=== PATIENT | male | born 1985 | race Caucasian/White ===

== ENCOUNTER 2023-08-04 20:59 | Emergency (ER) | payer MEDICAID, SELFPAY ==
[2023-08-04 21:05] VITALS: BP 145/94; PULSE 90; TEMP 36.7; O2SAT 96; BMI 38.0
[2023-08-04 21:09] VITALS: PULSE 93
--- NOTE | 2023-08-04 21:09 | ECG_ITS ---
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
[2023-08-04 21:10] VITALS: O2SAT 95
--- NOTE | 2023-08-04 21:19 | ED_ITS ---
HPI - SOB/Dyspnea General Chief Complaint: Shortness of Breath/Dyspnea Stated Complaint: diff breathing Time Seen by Provider: 08/04/23 21:18 Source: patient Mode of arrival: walk-in Limitations: no limitations History of Present Illness HPI Narrative: presents complaining of shortness of breath and cough for past 3 days. Dry cough. Chest pain with cough. No nausea or abdominal pain. Does smoke cigarettes but states he is smoking less. No fever. MD elicited complaint: shortness of breath and cough Related Data Home Medications ?Medication ?Instructions ?Recorded ?Confirmed aripiprazole 2 mg tablet (Abilify) 2 mg PO DAILY 08/04/23 08/04/23 buspirone 7.5 mg tablet 7.5 mg PO TID 08/04/23 08/04/23 sertraline 25 mg tablet (Zoloft) 25 mg PO DAILY 08/04/23 08/04/23 trazodone 100 mg tablet 150 mg PO DAILY 08/04/23 08/04/23 Allergies Allergy/AdvReac Type Severity Reaction Status Date / Time No Known Drug Allergies Allergy Verified 08/04/23 21:09 Review of Systems ROS Status of ROS 10 or more systems reviewed and unremark able except as noted in history and below Exam Constitutional Vital Signs, click to edit/add: Last Vital Signs Temp 98.1 F 08/04/23 21:05 Pulse 95 H 08/04/23 22:48 Resp 18 08/04/23 23:35 BP 134/67 08/04/23 22:48 Pulse Ox 95 08/04/23 22:48 O2 Del Method Room Air 08/04/23 23:35 Common normals: no apparent distress, average body habitus, oriented x3, no limitations, healthy appearing, alert and well nourished Eye Common normals: EOMs intact bilaterally and conjunctivae normal Respiratory Common normals: normal respiratory effort, no retractions, no use of accessory muscles and clear to auscultation bilaterally Cardio Common normals: regular rate, regular rhythm, S1 normal heart sound and S2 normal heart sound GI Common normals: Normal to inspection, nondistended, normoactive bowel sounds present, soft to palpation and non-tender Extremity Common normals: normal to inspection and full ROM Neuro Common normals: oriented x3, moves all extremities and no focal motor deficits Psych Appearance: grossly normal Course Vital Signs Vital signs: Vital Signs Temperature 98.1 F 08/04/23 21:05 Pulse Rate 90 08/04/23 21:05 Respiratory Rate 16 08/04/23 21:05 Blood Pressure 145/94 H 08/04/23 21:05 Pulse Oximetry 96 08/04/23 21:05 Oxygen Delivery Method Room Air 08/04/23 21:05 Temperature 98.1 F 08/04/23 21:05 Pulse Rate 95 H 08/04/23 22:48 Respiratory Rate 18 08/04/23 23:35 Blood Pressure 134/67 08/04/23 22:48 Pulse Oximetry 95 08/04/23 22:48 Oxygen Delivery Method Room Air 08/04/23 23:35 MDM - SOB/Dyspnea MDM Narrative Medical decision making narrative: patient ill for a couple of days. daily cigarette smoker. States he feels short of breath but in no distress. RA pulse ox 95%. RR 16 CTA chest with mild airway inflammation and swab positive for influenza. Patient advised of the diagnosis. Given first does of Tamiflu and discharged home with prednisone and an inhaler Lab Data Labs: Lab Results 08/04/23 08/04/23 Range/Units 21:29 21:30 WBC 4.1 (4.0-11.0) 10^3/uL RBC 4.88 (4.70-6.10) 10^6/uL Hgb 13.8 L (14.0-18.0) g/dL Hct 42.6 (42.0-54.0) % MCV 87.3 (80.0-94.0) fL MCH 28.3 (25.9-34.0) pg MCHC 32.4 (29.9-35.2) g/dL RDW 12.6 (11.0-15.0) % Plt Count 198 (150-450) 10^3/uL MPV 10.4 (9.5-13.5) fL Neut % (Auto) 55.7 (43.0-75.0) % Lymph % (Auto) 30.5 (20.5-60.0) % [place] % (Auto) 11.9 (1.7-12.0) % Eos % (Auto) 1.5 (0.9-7.0) % Baso % (Auto) 0.2 (0.2-2.0) % Neut # (Auto) 2.3 (1.4-6.5) 10^3/uL Lymph # (Auto) 1.3 (1.2-3.8) 10^3/uL [place] # (Auto) 0.5 (0.3-0.8) 10^3/uL Eos # (Auto) 0.1 (0.0-0.7) 10^3/uL Baso # (Auto) 0.0 (0.0-0.1) 10^3/uL Abs Immat Gran (auto) 0.01 (0.00-0.03) 10^3/uL Imm/Tot Granulo (auto) 0.2 (0.0-0.5) % D-Dimer 0.82 H* (<=0.59) mg/L FEU Sodium 138 (136-145) mmol/L Potassium 3.9 (3.5-5.1) mmol/L Chloride 104 (98-107) mmol/L Carbon Dioxide 23.0 (21.0-32.0) mmol/L Anion Gap 14.9 BUN 16.0 (7.0-18.0) mg/dL Creatinine 1.03 (0.70-1.30) mg/dL Est GFR ( Amer) >60 (>=60) Est GFR (Non-Af Amer) >60 (>=60) BUN/Creatinine Ratio 15.5 Glucose 121 H (74-106) mg/dL Calcium 8.4 L (8.5-10.1) mg/dL Troponin I High Sens 9.3 (4.0-76.1) pg/mL NT-Pro-B Natriuret Pep <5.0 (<=450.0) pg/mL Influenza Type A Ag Negative Influenza Type B Ag Positive A SARS-CoV-2 Ag (CV2AG) Negative (NEGATIVE) Imaging Data Chest x-ray: Radiologist's impression: ITS Impressions Chest X-Ray 08/04/23 21:21 IMPRESSION: 1. No acute cardiopulmonary abnormality. Electronically authenticated by: Jonelle MARTINEZ Date: 08/04/2023 22:01 Chest CTA 08/04/23 22:04 IMPRESSION: 1. No evidence of central pulmonary embolism. 2. Mild bronchial wall thickening could reflect airway inflammation. There is no mucous plug or significant pulmonary consolidation. 3. Cholelithiasis. Electronically authenticated by: JUVENAL DIOP Date: 08/05/2023 02:27 Discharge Plan Discharge Stand Alone Forms: Portal Instructions Chief Complaint: Shortness of Breath/Dyspnea Clinical Impression: Influenza Patient Disposition: Home, Self-Care Time of Disposition Decision: 23:20 Condition: Good Prescriptions / Home Meds: No Action buspirone 7.5 mg tablet 7.5 mg PO TID aripiprazole [Abilify] 2 mg tablet 2 mg PO DAILY trazodone 100 mg tablet 150 mg PO DAILY sertraline [Zoloft] 25 mg tablet 25 mg PO DAILY Print Language: Macedonian Instructions: Influenza (ED) Additional Instructions: follow up with your doctor early next week for recheck. Return if you become more short of breath Referrals: Physician,Non-Staff, MD [Primary Care Provider] - 1 week Discharge Date/Time: 08/04/23 23:39
--- NOTE | 2023-08-04 21:21 | XR_ITS ---
The [address] [address] Patient Name: YOVANA FONG MRN: [id number] date: 1985 Sex: M Assigned Patient Location: ER Current Patient Location: ED.MAIN Accession/Order Number: [id number] Exam Date: 08/04/2023 21:26 Report Date: 08/04/2023 22:01 At the request of: DARRYL REDDING Procedure: XR chest 1V EXAM: XR chest 1V HISTORY: short of breath COMPARISON: Chest radiographs dated 09/16/2020. TECHNIQUE: One view of the chest was obtained. FINDINGS: The cardiac silhouette is stable in size. The lungs are clear. There is no significant pneumothorax or pleural effusion. No acute osseous abnormality is seen. XR/XR chest 1V IMPRESSION: 1. No acute cardiopulmonary abnormality. Electronically authenticated by: Jonelle MARTINEZ Date: 08/04/2023 22:01
[2023-08-04 21:39] LABS: Basophils Percent Auto 0.2 % (0.2-2.0); Eosinophils Absolute Auto 0.1 10^3/uL (0.0-0.7); Eosinophils Percent Auto 1.5 % (0.9-7.0); Hematocrit 42.6 % (42.0-54.0); Hemoglobin 13.8 g/dL (14.0-18.0); Immature Granulocytes Abs Auto 0.01 10^3/uL (0.00-0.03); Immature Granulocytes Pct Auto 0.2 % (0.0-0.5); Lymphocytes Absolute Auto 1.3 10^3/uL (1.2-3.8); Lymphocytes Percent Auto 30.5 % (20.5-60.0); Mean Corpuscular HGB Conc 32.4 g/dL (29.9-35.2); Mean Corpuscular Hemoglobin 28.3 pg (25.9-34.0); Mean Corpuscular Volume 87.3 fL (80.0-94.0); Mean Platelet Volume 10.4 fL (9.5-13.5); Monocytes Absolute Auto 0.5 10^3/uL (0.3-0.8); Monocytes Percent Auto 11.9 % (1.7-12.0); Neutrophils Absolute Auto 2.3 10^3/uL (1.4-6.5); Neutrophils Percent Auto 55.7 % (43.0-75.0); Platelet Count 198 10^3/uL (150-450); Red Blood Count 4.88 10^6/uL (4.70-6.10); Red Cell Distribution Width 12.6 % (11.0-15.0); White Blood Count 4.1 10^3/uL (4.0-11.0)
[2023-08-04 21:49] LABS: Influenza Virus A Antigen Negative; Influenza Virus B Antigen Positive; Internal Control Within Normal Limits; SARS-CoV-2 Ag NEGATIVE (NEGATIVE)
[2023-08-04 21:54] VITALS: PULSE 89; O2SAT 96
[2023-08-04] MEDS: IPRATROPIUM/ALBUTEROL SULFATE 3 ML AMPUL.NEB IH (21:54)
[2023-08-04] MEDS: METHYLPREDNISOLONE SOD SUCC PF 125 MG/2 ML VIAL IVP (21:58)
[2023-08-04 21:59] LABS: Anion Gap 14.9; BUN Creatinine Ratio 15.5; Calcium 8.4 mg/dL (8.5-10.1); Chloride 104 mmol/L (98-107); Estimated GFR (African America >60 (>=60); Estimated GFR (Non-African Ame >60 (>=60); Glucose 121 mg/dL (74-106); NT Pro B Type Natriuretic Pept <5.0 pg/mL (<=450.0); Potassium 3.9 mmol/L (3.5-5.1); Sodium 138 mmol/L (136-145); Troponin I High Sensitivity 9.3 pg/mL (4.0-76.1)
[2023-08-04 22:04] LABS: D Dimer 0.82 mg/L FEU (<=0.59)
--- NOTE | 2023-08-04 22:04 | CT_ITS ---
[address] [address] Patient Name: YOVANA FONG MRN: [id number] date: 1985 Sex: M Assigned Patient Location: ER Current Patient Location: Accession/Order Number: [id number] Exam Date: 08/04/2023 22:21 Report Date: 08/05/2023 02:27 At the request of: DARRYL REDDING Procedure: CT angio chest EXAM: CT ANGIO CHEST HISTORY: Short of breath. COMPARISON: None. TECHNIQUE: CTA chest with IV contrast. FINDINGS: There is suboptimal opacification of the pulmonary arteries. No large central filling defects to the lobar level. Aorta is normal. No axillary or mediastinal pathological lymphadenopathy. There are subcentimeter lymph nodes in the right paratracheal region with a short axis measurement of 9 to 10 mm and in the lateral aortic recess measuring up to 8 to 9 mm. Normal heart size. No bowel obstruction or inflammation. No pneumatosis or pneumoperitoneum. Mild bronchial wall thickening. Airways are patent. No acute findings in the upper abdomen to the extent of limited visualization. Adrenal glands are partially imaged. Gallstones noted. No acute bony abnormality. CT/CT angio chest IMPRESSION: 1. No evidence of central pulmonary embolism. 2. Mild bronchial wall thickening could reflect airway inflammation. There is no mucous plug or significant pulmonary consolidation. 3. Cholelithiasis. Electronically authenticated by: JUVENAL DIOP Date: 08/05/2023 02:27
[2023-08-04 22:48] VITALS: BP 134/67; PULSE 95; O2SAT 95
[2023-08-04] MEDS: OSELTAMIVIR PHOSPHATE 75 MG CAPSULE PO (23:31)
[2023-08-04] MEDS: ALBUTEROL SULFATE 200 PUFF/6.7 GM INHALER IH (23:31)
== END 2023-08-04 23:39 | disposition home or self-care (01) ==
PROVIDERS: Emergency Provider Internal Medicine
DX: J10.1 Influenza due to other identified influenza virus with other respiratory manifestations (principal); Z20.822 Contact with and (suspected) exposure to COVID-19; F17.210 Nicotine dependence, cigarettes, uncomplicated; Z79.899 Other long term (current) drug therapy
CPT/HCPCS: 36415; 71045; 71275; 80048; 83880; 84484; 85025; 85378; 87804; 87811; 93005; 94640; 96374; 99285; J2919; Q9967

== ENCOUNTER 2023-11-12 09:15 | Observation (INO) | payer MEDICAID, SELFPAY ==
[2023-11-12] VITALS (11 sets, daily range): BP systolic 114–150; BP diastolic 82–129; PULSE 78–106; TEMP 36.5–36.6; O2SAT 91–99; BMI 35.3; BMI 37.6
--- NOTE | 2023-11-12 | CONS_ITS ---
CONSULTATION CONSULTATION DATE: ??11/12/2023 CHIEF COMPLAINT:? Abdominal pain. HISTORY OF PRESENT ILLNESS: Patient is a 41-year-old male with history of generalized anxiety disorder, as well as history of opioid abuse in the past, who presented to the emergency room with acute onset of epigastric pain that began at approximately 5:30 this morning.? It woke him up from sleep.? He described the pain as sharp, stabbing, burning at times.? It was associated with several episodes of watery loose stools, as well as some nausea and bilious emesis x2 or 3.? Because of the persistence of the pain, presented to the emergency room for evaluation.? He denies any history of similar type pain.? He had not had anything to eat today.? He reports he did have pizza have dinner last evening, has never had any fatty food intolerances or problems other than occasional GERD after eating spicy foods.? He denies any fever, chills or night sweats.? He has had no ill contacts.? No medication changes or ljpk-[id number] medication use.? Has had no previous surgical operations or endoscopies.? Workup in the emergency room revealed normal laboratory evaluation, with a very slight elevation of his white blood cell count 11.5.? He had normal liver function tests, amylase and lipase.? He did undergo a CT scan of the abdomen and pelvis which revealed a stone within the lower portion of the gallbladder that was non- obstructing.? There was no distention of the gallbladder.? No wall thickening.? No edema or pericholecystic fluid.? No other inflammatory changes noted within the abdomen or free fluid or air.? Because of the persistent pain which the patient was describing as severe, the emergency room felt he could not be discharged to home, even though there was not a clear explanation for his pain.? He was admitted for observation.? He is not taking any narcotics due to his previous history of abuse.? He has been taking Toradol.? Patient denies any history of ulcer disease.? Has had no melena.? No rectal bleeding.? He reportedly has a history of colon polyps as a small child that was evaluated after rectal bleeding.? He reports he has not had any problems since that time.? ALLERGIES:? Patient has no known drug allergies.? MEDICATION:? Only medication he is currently taking is Ability.? He was on buspirone, Zoloft and trazodone, which he has not been taking for the last four months.? PAST SURGICAL HISTORY:? He denies any previous surgical operations. SOCIAL HISTORY:? He does vape nicotine products daily.? Denies alcohol use or illicit drug use.? FAMILY HISTORY:? Noncontributory. REVIEW OF SYSTEMS:? Ten system review of systems is negative for recent weight loss or weight gain.? He denies increased fatigue or light-headedness.? Has had no earache or tinnitus.? No sinus congestion.? No sore throat or hoarseness.? No chest pain, palpitations or syncope.? No chronic cough, shortness of breath or hemoptysis.? He has had the abdominal pain.? Limited nausea, vomiting and diarrhea.? No dysuria, frequency, urgency or hematuria.? No headaches, seizures or tremors.? No easy bruising or bleeding.? No heat or cold intolerance.? No polydipsia, polyphagia or polyuria. PHYSICAL EXAM:? VITAL SIGNS:? He has had a slight tachycardia of 100.? Blood pressure is normal at 114/82.? Respiratory rate is 18.? He is afebrile.? O2 saturation is 94% on room air.? GENERAL:? In general, he is a well developed, well nourished male, currently resting in bed, in no acute distress. HEENT:? Normocephalic, atraumatic.? Sclerae anicteric.? Conjunctiva are not injected.? Oral mucosa is moist without lesions. NECK:? Supple.? There is no adenopathy, thyromegaly or JVD. LUNGS:? Clear bilaterally.? CARDIAC EXAM:? Increased rate without appreciable murmurs, rubs or gallops. ABDOMEN:? Soft.? There are slightly hyperactive bowel sounds.? There is very mild epigastric tenderness.? No Del Castillo?s sign.? No tenderness over the right upper quadrant.? No peritoneal signs.? No masses, hepatosplenomegaly or hernias appreciated.? No CVA tenderness.? SKIN: ?Warm and dry without lesions, rashes or ulcers. NEURO EXAM:? Non-focal.? Non-lateralizing.? Patient is awake, alert, oriented with appropriate affect. MUSCULOSKELETAL:? There is normal muscle strength, mass and tone. ASSESSMENT:? A 41-year-old male with a 12 hour history of epigastric pain, unclear etiology.? He did also undergo a right upper quadrant ultrasound which revealed the stone in the lower portion of the gallbladder.? No gallbladder wall thickening.? No distention.? No inflammatory changes or pericholecystic fluid.? There was a slight prominence of the common duct at 6-7 cm.? Overall, this may represent a gastroenteritis, gastritis, less likely a biliary colic episode.? There is no evidence of acute cholecystitis currently.? Certainly, he may be passing a small stone in the common duct, which would be difficult to identify, even with MRCP.? PLAN:? I agree with bowel rest, hydration, supportive care, serial exams and laboratory evaluation.? I would increase his protonix to b.i.d.? Certainly, an ulcer would be in the differential as well.? If he has persistent symptoms, we may require EGD for further evaluation.? CC:? Moisés Brenner M.D. ISAURA
--- NOTE | 2023-11-12 09:21 | CT_ITS ---
[address] [address] Patient Name: YOVANA FONG MRN: [id number] date: 1985 Sex: M Assigned Patient Location: ER Current Patient Location: [facility] Accession/Order Number: [id number] Exam Date: 11/12/2023 09:51 Report Date: 11/12/2023 10:41 At the request of: ANNITA JOSEPH Procedure: CT abdomen pelvis w con EXAMINATION: CT abdomen pelvis w con HISTORY: epigastric pain COMPARISON: No relevant comparison available. TECHNIQUE: CT images were created with IV contrast. Axial, Coronal, and Sagittal images. Dose reduction techniques were achieved by using automated exposure control and/or adjustment of mA and/or kV according to patient size and/or use of iterative reconstruction technique. FINDINGS: LUNG BASES: No visible pulmonary or pleural disease. LIVER: No enlargement, atrophy, abnormal density, or significant focal lesion. BILIARY: Cholelithiasis without CT evidence of acute cholecystitis PANCREAS: No lesion, fluid collection, ductal dilatation, or atrophy. SPLEEN: No enlargement or focal lesion. ADRENALS: No mass or enlargement. KIDNEYS: No mass, obstruction, or calcification. BOWEL/MESENTERY: Mild colonic diverticulosis without evidence of acute diverticulitis. Nonobstructive bowel gas pattern. Normal appendix. AORTA/VASCULAR: No aneurysm or dissection. RETROPERITONEUM: No mass or adenopathy. LYMPH NODES: No adenopathy. URINARY BLADDER: No visible focal wall thickening, lesion, or calculus. PELVIC ORGANS: No visible mass. Pelvic organs appropriate for patient age. ABDOMINAL WALL: No mass or hernia. BONES: No bony lesion or fracture. OTHER: Negative. CT/CT abdomen pelvis w con IMPRESSION: Normal appendix No acute intraperitoneal abnormality Electronically authenticated by: TAVO STRONG Date: 11/12/2023 10:41
--- NOTE | 2023-11-12 09:21 | ECG_ITS ---
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
--- NOTE | 2023-11-12 09:28 | XR_ITS ---
The [address] [address] Patient Name: YOVANA FONG MRN: [id number] date: 1985 Sex: M Assigned Patient Location: ER Current Patient Location: ED.MAIN Accession/Order Number: [id number] Exam Date: 11/12/2023 10:10 Report Date: 11/12/2023 10:28 At the request of: ANNITA JOSEPH Procedure: XR chest 1V EXAM: Chest x-ray HISTORY: . upper abd pain . COMPARISON: 08/04/2023 TECHNIQUE: Single view of the chest FINDINGS: Heart and vascularity are unremarkable. Lungs are free of focal infiltrates. Grossly no acute bony abnormality is appreciated. XR/XR chest 1V IMPRESSION: No acute heart or lung disease identified. Electronically authenticated by: TAVO EARL Date: 11/12/2023 10:28
[2023-11-12] MEDS: DICYCLOMINE HCL 20 MG/2 ML VIAL IM (09:35)
[2023-11-12] MEDS: 0.9 % SODIUM CHLORIDE 1,000 ML 999 ML IV (09:36)
[2023-11-12] MEDS: ONDANSETRON PF 4 MG/2 ML VIAL IV (09:36)
[2023-11-12] MEDS: FAMOTIDINE/PF 20 MG/2 ML VIAL IV (09:36)
[2023-11-12] MEDS: KETOROLAC TROMETHAMINE 30 MG/ML VIAL IVP ×2 (09:36→21:04)
[2023-11-12 09:48] LABS: Basophils Percent Auto 0.2 % (0.2-2.0); Eosinophils Absolute Auto 0.1 10^3/uL (0.0-0.7); Eosinophils Percent Auto 1.2 % (0.9-7.0); Hematocrit 48.3 % (42.0-54.0); Hemoglobin 15.9 g/dL (14.0-18.0); Immature Granulocytes Abs Auto 0.04 10^3/uL (0.00-0.03); Immature Granulocytes Pct Auto 0.3 % (0.0-0.5); Lymphocytes Absolute Auto 3.2 10^3/uL (1.2-3.8); Lymphocytes Percent Auto 27.6 % (20.5-60.0); Mean Corpuscular HGB Conc 32.9 g/dL (29.9-35.2); Mean Corpuscular Hemoglobin 28.1 pg (25.9-34.0); Mean Corpuscular Volume 85.3 fL (80.0-94.0); Mean Platelet Volume 10.7 fL (9.5-13.5); Monocytes Absolute Auto 0.6 10^3/uL (0.3-0.8); Monocytes Percent Auto 4.9 % (1.7-12.0); Neutrophils Absolute Auto 7.6 10^3/uL (1.4-6.5); Neutrophils Percent Auto 65.8 % (43.0-75.0); Platelet Count 380 10^3/uL (150-450); Red Blood Count 5.66 10^6/uL (4.70-6.10); Red Cell Distribution Width 12.4 % (11.0-15.0); White Blood Count 11.5 10^3/uL (4.0-11.0)
--- NOTE | 2023-11-12 10:09 | ED.ABDPAIN1 ---
HPI - Abdominal Pain General Chief Complaint: Abdominal Pain Stated Complaint: abdominal pain, vomiting Time Seen by Provider: 11/12/23 09:20 Source: patient Mode of arrival: walk-in Limitations: no limitations History of Present Illness HPI narrative: 38-year-old male to the emergency department chief complaint of epigastric pain, nausea, vomiting. Symptoms began suddenly at 5 AM. He reports chills, fever, sweats associated. No diarrhea. He denies any chest pain or shortness of breath. He reports that he is a recovering drug addict and does not want any narcotic pain medications. He has no history of surgery in his abdomen. He has never had pain like this before. Related Data Home Medications ?Medication ?Instructions ?Recorded ?Confirmed aripiprazole 2 mg tablet (Abilify) 2 mg PO DAILY 08/04/23 08/04/23 buspirone 7.5 mg tablet 7.5 mg PO TID 08/04/23 08/04/23 sertraline 25 mg tablet (Zoloft) 25 mg PO DAILY 08/04/23 08/04/23 trazodone 100 mg tablet 150 mg PO DAILY 08/04/23 08/04/23 Allergies Allergy/AdvReac Type Severity Reaction Status Date / Time No Known Drug Allergies Allergy Verified 08/04/23 21:09 Review of Systems ROS Status of ROS 10 or more systems reviewed and unremarkable except as noted in history and below Exam Narrative Exam Narrative: VITALS: I have reviewed the triage vital signs. GENERAL: Uncomfortable appearing adult male NEURO: Alert and oriented. Moves all extremities. Face is symmetric and expressive. EYES: PERRL. No scleral icterus or conjunctival injection. No discharge. HENT: Normocephalic, atraumatic. Hearing is grossly intact. Nares grossly patent and without discharge. Mucous membranes moist. NECK: No JVD. Patient moves neck without restriction. CARDIO: Rhythm regular. Normal rate. No murmur, rub, or gallop. Pulses equal bilaterally in the upper and lower extremity. No lower extremity edema. PULM: Lungs clear to auscultation in all robison. No wheezes, rales, or rhonchi. No conversational dyspnea. No splinting, stridor, or accessory muscle use. GI/: Abdomen is soft. Mild epigastric tenderness. normoactive bowel sounds. EXTREMITIES: Symmetric muscle bulk. No joint swelling. No clubbing, cyanosis, or deformity. SKIN: Warm and dry. Normal turgor. No rash or lesions appreciated. PSYCH: Anxious Constitutional Vital Signs, click to edit/add: Last Vital Signs Temp 97.7 F 11/12/23 09:18 Pulse 106 H 11/12/23 12:05 Resp 20 11/12/23 12:05 BP 139/83 11/12/23 10:11 Pulse Ox 98 11/12/23 12:05 O2 Del Method Room Air 11/12/23 12:05 Course Vital Signs Vital signs: Vital Signs Temperature 97.7 F 11/12/23 09:18 Pulse Rate 100 H 11/12/23 09:18 Respiratory Rate 20 11/12/23 09:18 Blood Pressure 150/129 H 11/12/23 09:18 Pulse Oximetry 99 11/12/23 09:18 Temperature 97.7 F 11/12/23 09:18 Pulse Rate 106 H 11/12/23 12:05 Respiratory Rate 20 11/12/23 12:05 Blood Pressure 139/83 11/12/23 10:11 Pulse Oximetry 98 11/12/23 12:05 Oxygen Delivery Method Room Air 11/12/23 12:05 MDM - Abdominal Pain MDM Narrative Medical decision making narrative: 38-year-old male to the emergency department chief complaint of epigastric discomfort. Vital stable, the patient is afebrile. Mild tenderness on abdominal examination. Toradol, Zofran, Bentyl, Pepcid are given for symptom control. Fluids are ordered. Will obtain a CT scan of the abdomen pelvis along with labs. Troponin and EKG ordered to rule out ACS. Patient agrees with this plan. Lab work unremarkable. EKG without ischemic findings. His troponin is negative x 2. This does not appear to be ACS. CT scan without acute findings however there is cholelithiasis without evidence of acute cholecystitis. On my review of the CT imaging there is a large gallstone at the neck of the gallbladder. Given symptom constellation and CT finding I believe this is biliary colic. He did have a second episode in the ER. Unable to be relieved with nonnarcotic pain medications. Risk-benefit discussion was had with the patient. He is in an immense amount of discomfort. He agrees to a dose of narcotic pain medication to ease his discomfort which is a 10 out of 10. Case discussed with Dr. Vallejo the on-call surgeon. He will see the patient in consultation in the hospital. Discussed with Dr. Brenner who agrees admit the patient to his service. Medical Records Attestation: I reviewed the patient's medical records. Lab Data Attestation: I reviewed the patient's lab results. Labs: Lab Results 11/12/23 11/12/23 Range/Units 09:25 11:00 WBC 11.5 H (4.0-11.0) 10^3/uL RBC 5.66 (4.70-6.10) 10^6/uL Hgb 15.9 (14.0-18.0) g/dL Hct 48.3 (42.0-54.0) % MCV 85.3 (80.0-94.0) fL MCH 28.1 (25.9-34.0) pg MCHC 32.9 (29.9-35.2) g/dL RDW 12.4 (11.0-15.0) % Plt Count 380 (150-450) 10^3/uL MPV 10.7 (9.5-13.5) fL Neut % (Auto) 65.8 (43.0-75.0) % Lymph % (Auto) 27.6 (20.5-60.0) % [place] % (Auto) 4.9 (1.7-12.0) % Eos % (Auto) 1.2 (0.9-7.0) % Baso % (Auto) 0.2 (0.2-2.0) % Neut # (Auto) 7.6 H (1.4-6.5) 10^3/uL Lymph # (Auto) 3.2 (1.2-3.8) 10^3/uL [place] # (Auto) 0.6 (0.3-0.8) 10^3/uL Eos # (Auto) 0.1 (0.0-0.7) 10^3/uL Baso # (Auto) 0.0 (0.0-0.1) 10^3/uL Abs Immat Gran (auto) 0.04 H (0.00-0.03) 10^3/uL Imm/Tot Granulo (auto) 0.3 (0.0-0.5) % Sodium 139 (136-145) mmol/L Potassium 4.3 (3.5-5.1) mmol/L Chloride 103 (98-107) mmol/L Carbon Dioxide 25.0 (21.0-32.0) mmol/L Anion Gap 15.3 BUN 12.0 (7.0-18.0) mg/dL Creatinine 0.98 (0.70-1.30) mg/dL Est GFR ( Amer) >60 (>=60) Est GFR (Non-Af Amer) >60 (>=60) BUN/Creatinine Ratio 12.2 Glucose 133 H (74-106) mg/dL Calcium 9.3 (8.5-10.1) mg/dL Total Bilirubin 0.7 (0.2-1.0) mg/dL AST 23 (15-37) U/L ALT 47 (16-63) U/L Alkaline Phosphatase 94 (46-116) U/L Troponin I High Sens 4.0 4.7 (4.0-76.1) pg/mL Total Protein 7.9 (6.4-8.2) g/dL Albumin 3.8 (3.4-5.0) g/dL Globulin 4.1 g/dL Albumin/Globulin Ratio 0.9 Lipase 27.0 (16.0-77.0) U/L Imaging Data CT scan - abdomen: Radiologist's impression: ITS Impressions Abdomen/Pelvis CT 11/12/23 09:21 IMPRESSION: Normal appendix No acute intraperitoneal abnormality Electronically authenticated by: TAVO STRONG Date: 11/12/2023 10:41 Chest X-Ray 11/12/23 09:28 IMPRESSION: No acute heart or lung disease identified. Electronically authenticated by: TAVO EARL Date: 11/12/2023 10:28 ECG Data Attestation: I personally reviewed and interpreted this ECG as follows: (Normal sinus rhythm at a rate of 88. No STEMI. No ischemic pattern. QTc 386.) Discharge Plan Discharge Stand Alone Forms: Portal Instructions Chief Complaint: Abdominal Pain Clinical Impression: Biliary colic, Abdominal pain Patient Disposition: Admitted as Observation Time of Disposition Decision: 12:28 Condition: Good Prescriptions / Home Meds: No Action buspirone 7.5 mg tablet 7.5 mg PO TID aripiprazole [Abilify] 2 mg tablet 2 mg PO DAILY trazodone 100 mg tablet 150 mg PO DAILY sertraline [Zoloft] 25 mg tablet 25 mg PO DAILY Print Language: Guamanian Referrals: Physician,Non-Staff, MD [Primary Care Provider] - 1 week
[2023-11-12 10:16] LABS: Alanine Aminotransferase 47 U/L (16-63); Albumin Globulin Ratio 0.9; Albumin Level 3.8 g/dL (3.4-5.0); Alkaline Phosphatase 94 U/L (46-116); Anion Gap 15.3; Aspartate Amino Transferase 23 U/L (15-37); BUN Creatinine Ratio 12.2; Bilirubin Total 0.7 mg/dL (0.2-1.0); Calcium 9.3 mg/dL (8.5-10.1); Chloride 103 mmol/L (98-107); Estimated GFR (African America >60 (>=60); Estimated GFR (Non-African Ame >60 (>=60); Globulin 4.1 g/dL; Glucose 133 mg/dL (74-106); Potassium 4.3 mmol/L (3.5-5.1); Sodium 139 mmol/L (136-145); Total Protein 7.9 g/dL (6.4-8.2)
[2023-11-12 11:26] LABS: Troponin I High Sensitivity 4.7 pg/mL (4.0-76.1)
[2023-11-12] MEDS: HYDROMORPHONE HCL 1 MG/ML CARTRIDGE IV (11:46)
[2023-11-12] MEDS: HYDROMORPHONE HCL 0.5 MG/0.5 ML SYRINGE IV (12:10)
--- NOTE | 2023-11-12 13:13 | P.HP_ITS ---
HPI H&P: HPI History of Present Illness Chief complaint: abdominal pain, vomiting, BILIARY COLIC Narrative: Patient with acute onset of right upper quadrant pain. Very severe. Presented to the emergency room. Unable to control pain well. 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 White blood cell count also elevated in the emergency room. Patient admitted for workup and treatment of same. Consultation to surgery. When I saw patient up on the medical surgical floor, he was resting comfortably, difficult to arouse actually but then was awakened without difficulty. Pain fairly well-controlled with 6-7 currently. Patient has had no prodromal symptoms this just the acute onset as outlined above. Opioid HPI Opioid Management Most Recent Pain and Opioid Data: Last Pain Scale 6 11/12/23 17:00 Last Pain Assessment 11/12/23 18:00 Last ED Pain Assessment 11/12/23 10:14 Last MAR Pain Assessment 11/12/23 11:46 Last ORT Total Score 15 11/12/23 13:49 Last ORT Risk Category High Risk 11/12/23 13:49 Ur Phencyclidine Scrn Negative (NEGATIVE) 11/12/23 15:50 PFSH PFSH Social History Highest level of school completed/degree received: GED or equivalent Do you think of yourself as: straight/heterosexual Gender Identity: male Meds Home Medications and Allergies Home Medications ?Medication ?Instructions ?Recorded ?Confirmed ?Type aripiprazole 2 mg tablet (Abilify) 2 mg PO DAILY 08/04/23 11/12/23 History buspirone 7.5 mg tablet 7.5 mg PO TID 08/04/23 11/12/23 History sertraline 25 mg tablet (Zoloft) 25 mg PO DAILY 08/04/23 11/12/23 History trazodone 100 mg tablet 150 mg PO DAILY 08/04/23 11/12/23 History Allergies Allergy/AdvReac Type Severity Reaction Status Date / Time No Known Drug Allergies Allergy Verified 08/04/23 21:09 Exam Constitutional Vital Signs, click to edit/add: Last Vital Signs Temp 97.7 F 11/12/23 09:18 Pulse 106 H 11/12/23 12:05 Resp 20 11/12/23 12:05 BP 139/83 11/12/23 10:11 Pulse Ox 98 11/12/23 12:05 O2 Del Method Room Air 11/12/23 12:05 Documenting provider has reviewed patient's vital signs: yes Common normals: no apparent distress Chest Common normals: inspection of chest normal and palpation of chest normal Respiratory Common normals: normal respiratory effort and no retractions Cardio Common normals: regular rate and regular rhythm GI Common normals: soft to palpation; tender Palpation: tender (Tender mostly upper abdomen, no rebound) Details: Del Castillo's sign Results Labs Labs: Short CBC 11/12/23 Range/Units 09:25 WBC 11.5 H (4.0-11.0) 10^3/uL Hgb 15.9 (14.0-18.0) g/dL Hct 48.3 (42.0-54.0) % Plt Count 380 (150-450) 10^3/uL BMP 11/12/23 09:25 Sodium 139 Potassium 4.3 Chloride 103 Carbon Dioxide 25.0 BUN 12.0 Creatinine 0.98 Glucose 133 H Calcium 9.3 Liver Function 11/12/23 Range/Units 09:25 Total Bilirubin 0.7 (0.2-1.0) mg/dL AST 23 (15-37) U/L ALT 47 (16-63) U/L Alkaline Phosphatase 94 (46-116) U/L Albumin 3.8 (3.4-5.0) g/dL Assessment and Plan Assessment and Plan (1) Abdominal pain: (2) Biliary colic: Plan Sinus tachycardia, uncontrolled hypertension, leukocytosis secondary to acute right upper quadrant pain secondary to cholelithiasis. No evidence of cholecystitis on CT scan. Will check ultrasound, consult to surgery, no signs of ascending cholangitis would hold off on antibiotics currently History narcotic abuse-we will hold off on narcotics, Toradol [id number], Levsin [id number], IV Tylenol for pain control Generalized anxiety disorder-continue with home medications Admission status: Significant right upper quadrant pain. Difficult to control in ER. Surgical evaluation today. Will start patient as observation status, depending on recommendations from surgery possible change to inpatient status.
--- NOTE | 2023-11-12 13:17 | US_ITS ---
The [address] [address] Patient Name: YOVANA FONG MRN: [id number] date: 1985 Sex: M Assigned Patient Location: [place] Current Patient Location: [place] Accession/Order Number: [id number] Exam Date: 11/12/2023 13:30 Report Date: 11/12/2023 14:47 At the request of: RUTHANN ADAME Procedure: US right upper quadrant EXAM: US right upper quadrant HISTORY: Abd Pain COMPARISON: None. TECHNIQUE: Transabdominal grayscale, color and Doppler FINDINGS: The liver is normal in size and contour measuring 16.2 cm in length. No focal hepatic mass. Hepatopedal flow in the main portal vein with velocity of 29 cm/s. The gallbladder contains an echogenic focus with acoustic shadowing, cholelithiasis. The gallbladder wall measures 2.1 mm, normal. The common bile duct measures 6.9 mm, mildly distended. No pericholecystic fluid. The pancreas is poorly visualized The right kidney is grossly normal measuring 10.5 x 5.8 x 6.1 cm. No solid cortical mass or hydronephrosis US/US right upper quadrant IMPRESSION: Cholelithiasis without gallbladder wall thickening Mildly distended common bile duct, nonspecific Electronically authenticated by: TAVO STRONG Date: 11/12/2023 14:47
[2023-11-12 13:45] LABS: INR 0.97; Partial Thromboplastin Time 26.5 sec (22.3-36.2); Prothrombin Time 10.3 sec (9.0-11.6)
[2023-11-12 14:33] LABS: Lactate/Lactic Acid 2.1 mmol/L (0.4-2.0)
[2023-11-12] MEDS: HYOSCYAMINE SULFATE 0.125 MG TAB.SUBL 0.25 MG SL ×2 (15:16→21:04)
[2023-11-12] MEDS: LACTATED RINGER'S SOLUTION 1,000 ML 100 ML IV (15:18)
[2023-11-12 17:04] LABS: Bilirubin Urine NEGATIVE (NEGATIVE); Blood Urine NEGATIVE (NEGATIVE); Clarity Urine CLEAR (CLEAR); Color Urine YELLOW (YELLOW); Glucose Urine UA NEGATIVE (NEGATIVE); Ketones Urine NEGATIVE (NEGATIVE); Leukocyte Esterase Urine NEGATIVE (NEGATIVE); Nitrite Urine NEGATIVE (NEGATIVE); Protein Urine TRACE mg/dL (NEG/TRACE); Urobilinogen Urine 0.2 EU/dL (0.2-1.0); pH Urine 5.5 (5.0-9.0)
[2023-11-12] MEDS: PROMETHAZINE HCL 25 MG in 0.9 % SODIUM CHLORIDE 50 ML 204 MG IV (17:12)
[2023-11-12 17:13] LABS: Urine Microscopic Indicated NO
--- NOTE | 2023-11-12 17:26 | PM.GSCN ---
History of Present Illness Consult details Consult date: 11/12/23 Reason for consult: abdominal pain Requesting physician: Moisés Brenner Narrative: patient seen/examined/chart and radiology images reviewed/consult dictated; 41 yo male with 12 hr h/o epigastric abd pain, diarrhea, N/V; normal labs, normal abd/pelvic ct scan except for incidental, nonobstructing gallstone in lower gallbladder; RUQ US with upper limit of normal cbd, no distension of gallbladder or inflammation; could be episode of biliary colic, no evidence of cholecystitis; possible gastroenteritis, gastritis or ulcer disease; may be passing a small stone in cbd, which is difficult to determine, even with MRCP; recommend bowel rest; supportive care; serial exams and labs; increase Protonix to BID; may need EGD if symptoms persist and etiology unclear. PFSH PFSH Social History Highest level of school completed/degree received: GED or equivalent Do you think of yourself as: straight/heterosexual Gender Identity: male Meds Home Medications and Allergies Home Medications ?Medication ?Instructions ?Recorded ?Confirmed ?Type aripiprazole 2 mg tablet (Abilify) 2 mg PO DAILY 08/04/23 11/12/23 History buspirone 7.5 mg tablet 7.5 mg PO TID 08/04/23 11/12/23 History sertraline 25 mg tablet (Zoloft) 25 mg PO DAILY 08/04/23 11/12/23 History trazodone 100 mg tablet 150 mg PO DAILY 08/04/23 11/12/23 History Allergies Allergy/AdvReac Type Severity Reaction Status Date / Time No Known Drug Allergies Allergy Verified 08/04/23 21:09 Exam Constitutional Vital Signs, click to edit/add: Last Vital Signs Temp 97.9 F 11/12/23 16:53 Pulse 105 H 11/12/23 16:53 Resp 16 11/12/23 16:53 BP 114/82 11/12/23 16:53 Pulse Ox 94 L 11/12/23 17:07 O2 Del Method Room Air 11/12/23 17:07 Results Labs Labs: Abnormal lab results 11/12/23 Range/Units 09:25 WBC 11.5 H (4.0-11.0) 10^3/uL Neut # (Auto) 7.6 H (1.4-6.5) 10^3/uL Abs Immat Gran (auto) 0.04 H (0.00-0.03) 10^3/uL Glucose 133 H (74-106) mg/dL Lactate 2.1 H (0.4-2.0) mmol/L Diabetes panel 11/12/23 Range/Units 09:25 Sodium 139 (136-145) mmol/L Potassium 4.3 (3.5-5.1) mmol/L Chloride 103 (98-107) mmol/L Carbon Dioxide 25.0 (21.0-32.0) mmol/L BUN 12.0 (7.0-18.0) mg/dL Creatinine 0.98 (0.70-1.30) mg/dL Glucose 133 H (74-106) mg/dL Calcium 9.3 (8.5-10.1) mg/dL AST 23 (15-37) U/L ALT 47 (16-63) U/L Alkaline Phosphatase 94 (46-116) U/L Total Protein 7.9 (6.4-8.2) g/dL Albumin 3.8 (3.4-5.0) g/dL Calcium panel 11/12/23 Range/Units 09:25 Calcium 9.3 (8.5-10.1) mg/dL Albumin 3.8 (3.4-5.0) g/dL Pituitary panel 11/12/23 Range/Units 09:25 Sodium 139 (136-145) mmol/L Potassium 4.3 (3.5-5.1) mmol/L Chloride 103 (98-107) mmol/L Carbon Dioxide 25.0 (21.0-32.0) mmol/L BUN 12.0 (7.0-18.0) mg/dL Creatinine 0.98 (0.70-1.30) mg/dL Glucose 133 H (74-106) mg/dL Calcium 9.3 (8.5-10.1) mg/dL Adrenal panel 11/12/23 Range/Units 09:25 Sodium 139 (136-145) mmol/L Potassium 4.3 (3.5-5.1) mmol/L Chloride 103 (98-107) mmol/L Carbon Dioxide 25.0 (21.0-32.0) mmol/L BUN 12.0 (7.0-18.0) mg/dL Creatinine 0.98 (0.70-1.30) mg/dL Glucose 133 H (74-106) mg/dL Calcium 9.3 (8.5-10.1) mg/dL Total Bilirubin 0.7 (0.2-1.0) mg/dL AST 23 (15-37) U/L ALT 47 (16-63) U/L Alkaline Phosphatase 94 (46-116) U/L Total Protein 7.9 (6.4-8.2) g/dL Albumin 3.8 (3.4-5.0) g/dL All other labs normal. Assessment and Plan Assessment and Plan (1) Abdominal pain: (2) Biliary colic:
[2023-11-12 17:29] LABS: Amphetamine Screen Urine NEGATIVE (NEGATIVE); Barbiturates Screen Urine NEGATIVE (NEGATIVE); Benzodiazepines Screen Urine NEGATIVE (NEGATIVE); Buprenorphine Screen Urine NEGATIVE (NEGATIVE); Cannabinoid Screen Urine NEGATIVE (NEGATIVE); Cocaine Screen Urine NEGATIVE (NEGATIVE); Methadone Screen Urine NEGATIVE (NEGATIVE); Methamphetamines Screen Urine NEGATIVE (NEGATIVE); Opiate Screen Urine POSITIVE (NEGATIVE); Oxycodone Screen Urine NEGATIVE (NEGATIVE); Phencyclidine Screen Urine NEGATIVE (NEGATIVE); Tricyclic Antidepressant Urine NEGATIVE (NEGATIVE)
[2023-11-12 17:41] LABS: Lactate/Lactic Acid 2.2 mmol/L (0.4-2.0)
[2023-11-13] MEDS: LACTATED RINGER'S SOLUTION 1,000 ML 100 ML IV (00:21)
[2023-11-13] MEDS: PROMETHAZINE HCL 25 MG in 0.9 % SODIUM CHLORIDE 50 ML 204 MG IV (00:21)
[2023-11-13 00:25] VITALS: BP 109/75; PULSE 91; TEMP 36.4; O2SAT 94
[2023-11-13] MEDS: KETOROLAC TROMETHAMINE 30 MG/ML VIAL IVP ×3 (01:21→13:07)
[2023-11-13 04:00] VITALS: BP 102/64; PULSE 74; TEMP 36.4; O2SAT 92
[2023-11-13] MEDS: HYOSCYAMINE SULFATE 0.125 MG TAB.SUBL 0.25 MG SL ×2 (05:47→13:07)
[2023-11-13] MEDS: PANTOPRAZOLE SODIUM 40 MG VIAL IV (05:47)
[2023-11-13 06:07] LABS: Basophils Percent Auto 0.1 % (0.2-2.0); Eosinophils Absolute Auto 0.3 10^3/uL (0.0-0.7); Eosinophils Percent Auto 2.9 % (0.9-7.0); Hematocrit 44.1 % (42.0-54.0); Hemoglobin 14.3 g/dL (14.0-18.0); Immature Granulocytes Abs Auto 0.03 10^3/uL (0.00-0.03); Immature Granulocytes Pct Auto 0.3 % (0.0-0.5); Lymphocytes Absolute Auto 2.2 10^3/uL (1.2-3.8); Lymphocytes Percent Auto 24.3 % (20.5-60.0); Mean Corpuscular HGB Conc 32.4 g/dL (29.9-35.2); Mean Corpuscular Hemoglobin 28.4 pg (25.9-34.0); Mean Corpuscular Volume 87.5 fL (80.0-94.0); Mean Platelet Volume 11.3 fL (9.5-13.5); Monocytes Absolute Auto 0.6 10^3/uL (0.3-0.8); Monocytes Percent Auto 6.5 % (1.7-12.0); Neutrophils Absolute Auto 6.1 10^3/uL (1.4-6.5); Neutrophils Percent Auto 65.9 % (43.0-75.0); Platelet Count 310 10^3/uL (150-450); Red Blood Count 5.04 10^6/uL (4.70-6.10); Red Cell Distribution Width 12.8 % (11.0-15.0); White Blood Count 9.2 10^3/uL (4.0-11.0)
[2023-11-13 06:26] LABS: Alanine Aminotransferase 30 U/L (16-63); Albumin Globulin Ratio 0.9; Albumin Level 2.8 g/dL (3.4-5.0); Alkaline Phosphatase 71 U/L (46-116); Anion Gap 10.9; Aspartate Amino Transferase 11 U/L (15-37); BUN Creatinine Ratio 20.9; Bilirubin Direct 0.1 mg/dL (0.0-0.2); Bilirubin Total 0.8 mg/dL (0.2-1.0); Calcium 8.3 mg/dL (8.5-10.1); Carbon Dioxide 27.3 mmol/L (21.0-32.0); Chloride 103 mmol/L (98-107); Estimated GFR (African America >60 (>=60); Estimated GFR (Non-African Ame >60 (>=60); Globulin 3.1 g/dL; Glucose 85 mg/dL (74-106); Potassium 4.2 mmol/L (3.5-5.1); Sodium 137 mmol/L (136-145); Total Protein 5.9 g/dL (6.4-8.2)
[2023-11-13 08:00] VITALS: BP 121/68; PULSE 96; TEMP 36.5; O2SAT 94
--- NOTE | 2023-11-13 08:43 | CM.NOTE ---
Rounds made with Dr. Brenner. Awaiting General Surgery input. Potential discharge later today.
--- NOTE | 2023-11-13 08:53 | P.PN_ITS ---
Progress Note: Subjective Subjective Interval history: Pain only minimally improved overnight Exam Constitutional Vital Signs, click to edit/add: Last Vital Signs Temp 97.7 F 11/13/23 08:00 Pulse 96 H 11/13/23 08:00 Resp 16 11/13/23 08:00 BP 121/68 11/13/23 08:00 Pulse Ox 94 L 11/13/23 08:00 O2 Del Method Room Air 11/13/23 08:00 Documenting provider has reviewed patient's vital signs: yes Common normals: no apparent distress Chest Common normals: inspection of chest normal and palpation of chest normal Respiratory Common normals: normal respiratory effort and no retractions Cardio Common normals: regular rate and regular rhythm GI Common normals: soft to palpation; tender Palpation: tender (Tender mostly upper abdomen, on unchanged) Details: Del Castillo's sign; no rebound tenderness present Progress Note: Objective Labs Labs: Short CBC 11/12/23 11/13/23 Range/Units 09:25 04:54 WBC 11.5 H 9.2 (4.0-11.0) 10^3/uL Hgb 15.9 14.3 (14.0-18.0) g/dL Hct 48.3 44.1 (42.0-54.0) % Plt Count 380 310 (150-450) 10^3/uL BMP 11/12/23 11/13/23 09:25 04:54 Sodium 139 137 Potassium 4.3 4.2 Chloride 103 103 Carbon Dioxide 25.0 27.3 BUN 12.0 23.0 H Creatinine 0.98 1.10 Glucose 133 H 85 Calcium 9.3 8.3 L Liver Function 11/12/23 11/13/23 Range/Units 09:25 04:54 Total Bilirubin 0.7 0.8 (0.2-1.0) mg/dL Direct Bilirubin 0.1 (0.0-0.2) mg/dL AST 23 11 L (15-37) U/L ALT 47 30 (16-63) U/L Alkaline Phosphatase 94 71 (46-116) U/L Albumin 3.8 2.8 L (3.4-5.0) g/dL Urine 11/12/23 Range/Units 15:50 Urine Color Yellow (YELLOW) Urine Clarity Clear (CLEAR) Urine pH 5.5 (5.0-9.0) Ur Specific [place] 1.010 (1.005-1.025) Urine Protein Trace (NEG/TRACE) mg/dL Urine Glucose (UA) Negative (NEGATIVE) mg/dL Progress Note: A&P Assessment and Plan (1) Abdominal pain: (2) Biliary colic: Plan Sinus tachycardia, uncontrolled hypertension, leukocytosis secondary to acute right upper quadrant pain secondary to cholelithiasis. No evidence of cholecystitis on CT scan. Ultrasound unremarkable other than a gallstone, no fluid, no gallbladder wall thickness, recommend surgery, will do EGD later today lab results unchanged History narcotic abuse-we will hold off on narcotics, Toradol [id number], Levsin [id number], IV Tylenol for pain control Generalized anxiety disorder-continue with home medications Admission status: Significant right upper quadrant pain. Difficult to control in ER. Surgical evaluation today. Will start patient as observation status, depending on recommendations from surgery possible change to inpatient status. ?
[2023-11-13 11:28] VITALS: PULSE 76; O2SAT 98
--- NOTE | 2023-11-13 12:06 | OP_ITS ---
OP Note OPERATION DATE: ??11/13/2023 PREOPERATIVE DIAGNOSIS:? Epigastric abdominal pain, intermittent. POSTOPERATIVE DIAGNOSIS:? Sliding type hiatal hernia, antral and gastric body gastritis without ulceration and mild distal esophagitis. PROCEDURE:? EGD with antral and gastric body biopsies. ANESTHESIA:? Monitored anesthesia care. ESTIMATED BLOOD LOSS:? Less than 1 mL. INDICATIONS AND CONSENT:? Patient is a 38-year-old male with a day and a half history of epigastric abdominal pain, which has been intermittent.? Workup just revealed a non-obstructing gallstone.? His laboratory evaluations have been normal.? He did have some improvement in his pain overnight, but he reports that it returned this morning.? He has had no further nausea, vomiting or diarrhea since his admission to the hospital.? He has been afebrile.? Indications, risks, benefits, alternatives of proceeding with EGD for further evaluation were explained extensively to the patient, including the risks of bleeding, aspiration, esophageal/gastric/duodenal perforation or anesthetic complications.? All of his questions were answered.? Informed consent was obtained. PROCEDURE:? Patient brought to the operating room, placed in the left lateral decubitus position.? Monitored anesthesia care was provided.? Bite block was placed in the patient?s mouth.? Scope was inserted into the oropharynx.? Under direct visualization, it was advanced into the esophagus, past the cricopharyngeus, down to the stomach.? The stomach was insufflated with air.? The pylorus was traversed down to the descending portion of the duodenum.? There was no evidence of duodenitis or ulceration.? There was no scarring within the pyloric channel.?? No ulceration.? Scope was pulled back into the stomach and retroflexed.? There was noted to be a small, sliding type hiatal hernia.? Within the antrum and gastric body, there was noted to be mild to moderate gastritis without ulceration or bleeding.? Biopsies were obtained with pediatric cold biopsy forceps of the antrum and gastric body with good hemostasis.? The GE junction was noted at approximately 40 cm.? There was some mild distal esophagitis with irregularity of the Z-line.? The remainder of the esophagus was unremarkable.? The scope was then withdrawn.? Patient tolerated procedure well, was sent to recovery room in good condition. CC:? Moisés Brenner M.D. [facility]
[2023-11-13 12:18] VITALS: BP 94/55; PULSE 90; TEMP 36.7; O2SAT 96
[2023-11-13 12:50] VITALS: BP 112/73; PULSE 76; O2SAT 94
--- NOTE | 2023-11-14 11:27 | CM.DCFOLLOWU ---
1st attempt 11/14/23
--- NOTE | 2023-11-16 11:38 | CM.DCFOLLOWU ---
2nd attempt 11/16/23
== END 2023-11-13 14:54 | disposition home or self-care (01) ==
LOC: ER 13:07 → MS 13:09
PROVIDERS: Surgery; Admitting Provider Family Medicine; Emergency Provider Student in an Organized Health Care Education/Training Program; Visit Provider Family Medicine
PROC: (CPT 731; principal; 2023-11-13 12:00)
DX: K29.00 Acute gastritis without bleeding (principal); K20.90 Esophagitis, unspecified without bleeding; R00.0 Tachycardia, unspecified; I10 Essential (primary) hypertension; K80.20 Calculus of gallbladder without cholecystitis without obstruction; D72.829 Elevated white blood cell count, unspecified; F11.11 Opioid abuse, in remission; F41.1 Generalized anxiety disorder; Z79.899 Other long term (current) drug therapy; F17.290 Nicotine dependence, other tobacco product, uncomplicated; K44.9 Diaphragmatic hernia without obstruction or gangrene
CPT/HCPCS: 43239; 36415; 71045; 74177; 76705; 80053; 80076; 80307; 81003; 83605; 83690; 84484; 85025; 85610; 85730; 88305; 93005; 94667; 94761; 96365; 96372; 96375; 96376; 99285; G0378; J0500; J1170; J1885; J2250; J2405; J2704; Q9967